=== PATIENT | female | born 1965 | race Caucasian/White ===

== ENCOUNTER → 2021-01-17 14:09 | Outpatient (CLI) | payer OTHER, SELFPAY ==
[2021-01-17 15:41] LABS: COVID19 -Nasal RAPID Negative (Negative)
== END ==
PROVIDERS: Visit Provider Physician Assistant
DX: Z20.822 Contact with and (suspected) exposure to COVID-19 (principal)
CPT/HCPCS: 87635

== ENCOUNTER 2021-01-19 11:23 | Day surgery (SDC) | payer OTHER, SELFPAY ==
[2021-01-19] VITALS (14 sets, daily range): BP systolic 102–142; BP diastolic 69–89; PULSE 48–74; RESP 8–18; TEMP 35.6–36.6; O2SAT 93–99; BMI 32.8
--- NOTE | 2021-01-19 | DI.RAD.S_ITS ---
PROCEDURE: XR KNEE RT 1TO2V INDICATIONS: POST OP TOTAL RIGHT KNEE TECHNIQUE: To view(s) of the knee acquired. COMPARISON: None. FINDINGS: Bones: Patient is status post knee joint arthroplasty. Hardware components are in expected positions. Visualized bony structures are intact. Soft tissues: Overlying postoperative changes are noted. IMPRESSION: Normal alignment after right total knee arthroplasty. Dictated by: Javier Meadows M.D. on 01/20/2021 at 8:12 Approved by: Javier Meadows M.D. on 01/20/2021 at 8:12
[2021-01-19] MEDS: ACETAMINOPHEN 325 MG TABLET 975 MG PO (12:11)
[2021-01-19] MEDS: PREGABALIN 75 MG CAPSULE PO (12:11)
[2021-01-19] MEDS: CELECOXIB 200 MG CAPSULE PO (12:11)
[2021-01-19] MEDS: LACTATED RINGERS 1,000 ML 42 ML IV ×2 (12:12→16:34)
--- NOTE | 2021-01-19 13:56 | PM.PREOP ---
Pre-operative Note COVID-19 COVID-19 status: Negative Result date/Date tested (Pos, Neg/Pending): 01/17/21 Interval Note History & Physical reviewed/Exam performed by Physician: Yes Changes to H&P: No H&P completed within 30 days and has changed as indicated here:: Plan for R TKA
[2021-01-19] MEDS: CEFAZOLIN 2 GM/100 ML FROZ.PIGGY IV ×2 (14:41→22:56)
[2021-01-19] MEDS: TRANEXAMIC ACID 1,000 MG VIAL 1000 MG INJ ×2 (15:00→16:38)
--- NOTE | 2021-01-19 15:16 | SUR.OPER ---
Supine on padded OR bed. Pillow under head, arms secured on padded armboards <90 degree abduction. Safety belt across torso. Non-operative leg secured with tape over blanket over lower leg. Operative leg on padded bar. Foam padded brace at thigh of operative leg.
[2021-01-19] MEDS: ROPIVACAINE 0.5% PF 5 MG/ML 20ML VIAL 60 ML INJ (15:21)
[2021-01-19] MEDS: MORPHINE 4 MG/ML INJ INJ (15:22)
[2021-01-19] MEDS: KETOROLAC 30 MG/ML VIAL IV (15:22)
[2021-01-19] MEDS: SODIUM CHLORIDE IRRIG SOLUTION 250 ML, POVIDONE-IODINE SPONGE STICKS 1 APPLIC IRR (15:24)
--- NOTE | 2021-01-19 16:27 | P.OP_ITS ---
Operative Date/Time/Diagnoses Date of procedure: 01/19/21 Time of procedure: 16:27 Pre-op diagnosis: right knee OA Post-op diagnosis: same Procedure & Clinicians Procedure: Right TKA Same procedure as scheduled: Yes Indications: Right knee osteoarthritis resistant to further conservative care Surgeon: Cisco Groves Marketing Project Manager: Javier Leonard Anesthesia Type: General and Spinal Operative Notes Findings: [id number] articulation of the lateral compartment. Overall valgus alignment. Closure Type: primary Specimen(s): none sent Prosthetic devices, grafts, tissues, transplants, or devices: Camacho [employer] Nephew size 7 right Journey 2 CR femoral component Size 6 right Journey tibial base plate Size 5-6 right 9 mm thick Journey 2 polyethylene deep dish 32 mm oval patellar button Estimated Blood Loss (mL): 200 Tourniquet time (min): 52 Procedure in detail: Patient was met in the preoperative holding area where the site and side of surgery were marked by . informed consent was signed in clinic but was also reviewed the preoperative holding area. All last minute questions were answered. Patient was then brought back in the operating room where she received a spinal anesthetic. She was then placed supine on the operating room table. A nonsterile tourniquet was then placed on her right thigh and the right lower extremity was then prepped and draped in normal sterile fashion. A surgical time-out was performed verifying the site and side of surgery as well as the name of the patient. An Esmarch was used to exsanguinate blood from the right lower extremity the tourniquet was inflated 250 mm of mercury. A longitudinal incision over the center of the knee was then made with a 10. Blade. Medial lateral flaps were then elevated. A medial parapatellar arthrotomy was then performed removed Hoffa's fat pad was then performed followed by a medial peel. The lateral meniscus was then removed. Lindrith's line was then marked the entry for the femoral drill was marked approximately 0.5 cm proximal to the PCL insertion and the ACL was removed and the tibial entrance marked the ACL footprint was also marked. The drill was then entered the femoral canal and the tibial canal respectively the intramedullary guide for the femur was then placed and the femur was cut in the neutral slot after inspection of the. This would not be enough cuts were 2 mm were taken. The intramedullary mak was then placed inside the tibia. The tibial cutting guide was then placed and provisionally pinned into place a drop mak was then used to verify varus valgus alignment. A 3rd pin was then placed to hold this in alignment. Tibial cut was then made. At this point the cutting blocks removed the knee was brought into full extension a 9 mm extension block fit on the medial side however did not fit in the lateral side and the lateral collateral ligament was tight. The leg was placed in a figure 4 position and the lateral collateral ligament was was pie crusted with a 15 blade. I then trialed the extension block again still tight on the lateral side and progressively performed more more high crusting until the extension block fit in the lateral and medial sides. Once this was complete then placed the gap automotive service professional on and the femur and marked with drill holes. This was compared to Whitesides line. This showed external rotation. And the femur sized to a size 7. The 5 in 1 size 7 femoral cutting block was then placed on the femur pinned in place. The 5 in 1 cuts were then performed sequentially. A size 7 trial was then placed on the femur the notch cut was then performed and a size 6 tibial base plate with a 9 mm thick CR was trialed the knee had full extension and excellent flexion range of motion. Knee stable to varus and valgus stress at full extension as well as mid flexion and flexion range of motion. The PCL was noted to be tight at this point and not allowing rollback. A 15 blade was then used to pie crust the PCL until rollback was achieved. The patella was then freehand cut and sized to a 32 mm patella this was then drilled for and a trial was placed. The patella tracked through flexion-extension range of motion. At this point the trials were removed local anesthetic was infiltrated into the periarticular soft tissues well as the back of the knee. The tibial tray was then placed on the tibia and pinned in place and drilled and punched. Full puls e lavage was then used to clean the cut surfaces of the knee the surfaces were then dried. Cement was mixed and packed onto the cut surface of the tibia and finger packed into the keel hole. Cement was placed on the undersurface of the tibial base plate and malleted into place excess cement was removed. Cement was then finger packed on the cut surface of the femur with exception of the posterior condylar cut and cement was placed on the feet of the femoral component this was then malleted into place and excess cement was removed. A 9 mm thick polyethylene trial was then placed the knee was brought into full extension and the ankle held in internal rotation. Cement was then finger packed onto the cut surface of the patella and the patellar button was then clamped into place and excess cement was removed. Betadine solution was then placed in the wound and the cement was allowed to fully cure before manipulation of the knee. Tourniquet was let down at 52 minutes of time. Hemostasis was achieved using electrocautery. After full cement cure with the for any bony fragments are excess cement none was seen. The knee was then thoroughly irrigated 1 more time with normal saline the trial was then removed and a size 5-6 right deep dish 9 mm thick polyethylene was then selected and placed make sure the medial and lateral tabs were engaged. The medial parapatellar arthrotomy was then closed using number 0 Vicryl interrupted fashion followed by running Quill suture followed by 2 Vicryl in subcutaneous layer followed by 3-0 Stratafix in subcuticular layer followed by Dermabond and Aquacel dressing. Complications: none Post-operative Condition: stable Disposition: PACU Plan for aftercare: 24 hours post-op, WBAT RLE, ASA 81mg BID for 6 weeks for DVT prophylaxis
[2021-01-19] MEDS: OXYCODONE IR 5 MG TABLET PO (17:17)
[2021-01-19] MEDS: ONDANSETRON 4 MG/2 ML INJ IV (17:18)
[2021-01-19] MEDS: LACTATED RINGERS 1,000 ML 100 ML IV (18:13)
[2021-01-19] MEDS: OXYCODONE IR 10 MG TABLET PO ×2 (19:11→22:56)
[2021-01-19] MEDS: DOCUSATE 100 MG CAPSULE PO (21:27)
[2021-01-19] MEDS: ASPIRIN EC 81 MG TABLET PO (21:27)
[2021-01-19] MEDS: ACETAMINOPHEN 325 MG TABLET 650 MG PO (21:27)
[2021-01-20 03:29] VITALS: BP 148/75; PULSE 54; RESP 18; TEMP 36.5; O2SAT 94
[2021-01-20] MEDS: OXYCODONE IR 10 MG TABLET PO ×3 (03:32→13:35)
[2021-01-20 04:58] LABS: Hematocrit 31.3 % (36-46); Hemoglobin 10.6 g/dL (12.0-16.0)
[2021-01-20] MEDS: CEFAZOLIN 2 GM/100 ML FROZ.PIGGY IV (06:34)
--- NOTE | 2021-01-20 08:13 | P.DS_ITS ---
History of Present Illness History of Present Illness Date Patient Seen: 01/20/21 Time Patient Seen: 08:13 Chief complaint: SDC Discharge Providers Provider Discharge Date: 01/20/21 Consults: 01/19/21 07:45 Consult to Anesthesiology Routine Comment: Consulting Provider: Anesthesiologist Reason for consultation: Regional block for post operative pain control 01/19/21 17:47 Consult to Discharge Planning Routine Comment: Consult to Physical Therapy Evaluate & Treat Comment: Physician Instructions: postop TKA protocol Consult to Respiratory Therapy Evaluate & Treat Comment: Physician Instructions: Evaluate and treat Discharge provider: Javier Leonard PA-C Summary Hospital Course Discharge Diagnosis: Right knee osteoarthritis Status post total right knee arthroplasty Hospital Course: This is a 55-year-old female with the above-listed diagnosis that was consented for the above listed procedure as indicated presenting to the OR having undergone said procedure without difficulty or complication was admitted for rehabilitation and convalesced appropriately without significant issue. They were stable for discharge home safely today. The patient verbalized understanding postoperative care instructions and agree with plan for follow-up. Status at Discharge Cognitive/behavioral status at discharge: oriented Functional status at discharge: uses cane/walker Overall status at discharge: patient is progressing back to baseline Time Spent with Patient Time spent: Less than 30 minutes Exam Vital Signs (past 8 hours): - 01/20/21 03:29 Temperature 97.7 F Pulse Rate 54 L Respiratory Rate 18 Blood Pressure 148/75 H Pulse Oximetry 94 Oxygen Delivery Method Room Air Oxygen Flow Rate 0 Narrative Exam Narrative: Observed resting comfortably in no apparent distress and alert and oriented x3. The patient's heart rate was regular as well as a normal inspiratory effort. Her dressing was clean, dry and intact. Distal affected extremities were neurovascularly intact. Bilateral lower extremities were negative for signs or symptoms of DVT. Objective Labs Result Diagrams: 01/20/21 04:30 Labs: Laboratory Results - last 24 hr 01/20/21 04:30 Hgb 10.6 L Hct 31.3 L PFSH Medical History (Updated 01/18/21 @ 10:19 by Hiwot Cadet RN) Anemia Anxiety Arthralgia Back pain Chest pain Degenerative joint disease of knee Dizziness Eczema Fatigue First degree AV block HTN (hypertension) Migraine headache Moderate major depression Obesity Primary osteoarthritis of right knee PSVT (paroxysmal supraventricular tachycardia) (~2006) Sciatica Shortness of breath Tibial fracture Vitamin D deficiency Surgical History (Updated 01/18/21 @ 10:09 by Hiwot Cadet RN) H/O arthroscopy of knee (~1996) H/O blepharoplasty (~2016) H/O hernia repair History of abdominoplasty History of eye surgery Social History household members: family Smoking Status: Current some day smoker alcohol intake: current Discharge Assessment & Plan Assessment and Plan Assessment: Right knee osteoarthritis Status post total right knee arthroplasty Plan of Treatment: Discharged home today in stable condition Postoperative total knee care protocol apply. Weight-bearing as tolerated on right lower extremity with fall precautions. DVT prophylaxis 81 mg of aspirin taken twice daily for the next 6 weeks. Follow-up in clinic in 2 weeks for re-evaluation or sooner as needed. Discharge Plan Discharge Plan Patient Disposition: Home Discharge orders & Medications Discharge Orders: Discharge (Order); Ordered 01/20/21 Ordered By: Javier Leonard Prescriptions: New acetaminophen 325 mg Tablet 650 mg PO TID PRN (Reason: Pain (Scale Score 4-6)) Qty: 60 RF: 0 aspirin 81 mg Tablet,Delayed Release (Dr/Ec) 81 mg PO BID Qty: 90 RF: 0 docusate sodium [DOK] 100 mg Capsule 100 mg PO BID PRN (Reason: Constipation) Qty: 30 RF: 0 oxycodone 10 mg Tablet 5 - 10 mg PO Q4-5H PRN (Reason: Pain, Severe (7-10)) Qty: 60 RF: 0 ibuprofen 800 mg tablet 800 mg PO TID PRN (Reason: pain) Qty: 60 RF: 0 Continued lisinopril-hydrochlorothiazide 20-12.5 mg Tablet 1 tab PO DAILY RF: 0 metoprolol tartrate 25 mg Tablet 25 mg PO DAILY PRN (Reason: Palpitations or public speaking) RF: 0 multivitamin Tablet 1 tab PO DAILY RF: 0 triamcinolone acetonide 0.5 % Cream 1 applic TOPICAL BID PRN (Reason: Rash) RF: 0 ergocalciferol (vitamin D2) 50,000 unit Tablet 50,000 unit PO WEEKLY RF: 0 Follow up/Referrals: Cisco Groves MD [Physician] - (F/U in 2 weeks) Diet/Activity/Treatments Diet: Diet as Tolerated Activity: Weight Bear As Tolerated on Right Lower Extremity. Cold/Heat Therapy: Ice 20 min /hr as tolerated. Other treatments: Leave aquacel dressing in place until appointment. You may shower. Skin/Wound/Dressing Care Report to your healthcare provider any signs of infection, such as:: chills, fever, night sweats, increased pain, unusual drainage and unusual redness Dressing: Keep Clean Dry Intact Visit Report/Discharge Packet Instructions: DI for Knee Replacement, DI for Constipation, How to Prevent Fall s Stand Alone Forms: Surgery Discharge Discharge Data Attending Provider: Cisco Groves
[2021-01-20] MEDS: ACETAMINOPHEN 325 MG TABLET 650 MG PO ×2 (08:54→13:34)
[2021-01-20] MEDS: lisinopriL 20 MG TABLET PO (08:55)
[2021-01-20] MEDS: hydroCHLOROthiazide 25 MG TABLET 12.5 MG PO (08:55)
[2021-01-20] MEDS: ASPIRIN EC 81 MG TABLET PO (08:55)
[2021-01-20] MEDS: DOCUSATE 100 MG CAPSULE PO (08:55)
--- NOTE | 2021-01-20 10:20 | PT.IIE ---
Current Diagnoses Unilateral primary osteoarthritis, right knee (01/19/21) Surgery Performed Operation Date: 01/19/21 13:15 Actual Procedures p Total Knee Arthroplasty(Right) - Cisco Groves MD Surgical History (Last Updated 01/18/21 @ 10:09 by Hiwot Cadet RN) H/O arthroscopy of knee (~1996) H/O blepharoplasty (~2016) H/O hernia repair History of abdominoplasty History of eye surgery Medical History (Last Updated 01/18/21 @ 10:19 by Hiwot Cadet RN) Anemia Anxiety Arthralgia Back pain Chest pain Degenerative joint disease of knee Dizziness Eczema Fatigue First degree AV block HTN (hypertension) Migraine headache Moderate major depression Obesity Primary osteoarthritis of right knee PSVT (paroxysmal supraventricular tachycardia) (~2006) Sciatica Shortness of breath Tibial fracture Vitamin D deficiency Physical Therapy Inpatient Evaluation/Re-Eval M1 PT/OT-IP Prior Functional Status Start: 01/20/21 08:29 Freq: NEEDED Status: Active Protocol: Document 01/20/21 10:20 AW (Rec: 01/20/21 09:12 AW [id number]) Medical Review Prior Functional Status Medical History Reviewed Yes Communication WNL. Pt is an effective verbal communicator. Mobility and Gait Pt admits to slow but independent movement at baseline. Able to walk up to two miles without AD. Activities of Daily Living and IADL's Independent. Social History Household Members family Living Arrangements House Number of Floors (Floors) One Floor Number of Stairs To Enter/Railing? 2 deep VLADIMIR without railing. Pt can contact a wall on the left side after the first step . States she is able to use walker for stairs. 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 Her 26 yo son lives with her and will be available and able to assist as needed. Pt's brother and [id number] will also be assisting. Pt has a standard walker. States she will be able to borrow a FWW from her [place]. M2 PT-IP Current Condition Start: 01/20/21 08:29 Freq: NEEDED Status: Active Protocol: Document 01/20/21 10:20 AW (Rec: 01/20/21 09:20 AW [id number]) Physical Therapy Current Condition Current Condition Evaluation Date 01/20/21 Treatment Diagnosis R TKA; difficulty in walking Onset Date 01/19/21 Weight Bearing Status Weight Bearing Status Weight Bear as Tolerated M3 PT-IP Subjective Start: 01/20/21 08:29 Freq: NEEDED Status: Active Protocol: Document 01/20/21 10:20 AW (Rec: 01/20/21 09:20 AW [id number]) Subjective Physical Therapy Visit Type Type Initial Evaluation Visit Start Time 08:54 Visit Stop Time 10:20 Total Visit Minutes 34 Notes 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 visits 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 Number of SLEEP TECHNOLOGIST Visits 0 Physical Therapy Visit Comments Patient Comments Pt is willing to participate with PT Patient Goals Return home with family support Therapy Pain Assessment Pain When Pain Assessed At Rest Pain Present Pain Present Pain Reported Location right knee Intensity 4 Scale Used Numeric (0 - 10) Pain Management Techniques Apply Cold,Timing of Activity with Medications M4 PT-IP Mobility and Gait Start: 01/20/21 08:29 Freq: NEEDED Status: Active Protocol: Document 01/20/21 10:20 AW (Rec: 01/20/21 11:38 AW [id number]) PT-Bed Mobility Assessment Supine to Sit Supine to Sit Standby Assistance,Head of Bed Elevated Scooting Scooting to Edge of Bed Standby Assistance PT-Transfer Assessment Sit to and From Stand Sit to and from Stand Standby Assistance,Use of Upper Extremities Equipment Transfer Assistive Device Gait Belt,Front Wheeled Walker Orthotic/Prosthetic Devices or Brace: No Transfers Transfer Destination Chair Transfer Technique Stand Step Pivot Transfer Ability Level of Assist Standby Assistance Comments Mobility Comments Pt was sitting up in the bed as PT arrived. BP was 122/67 HR 68. Pt completed supine to sit SBA and sat EOB without complaint of increased pain. She stood from the bed SBA and ambulated in the halls with FWW SBA. She walked 110 feet to the therapy stairs, completed stair training, and returned the 110 feet with FWW SBA. On return to the room, she transferred to the bedside chair and practiced sit to stand from lower surface SBA. Pt was left with call light and all needs in reach. Gait Assessment Gait Gait Assistance Required: Standby Assistance Distance (Feet) 220 Able to Maintain Weight Bearing Status Yes During Gait Assistive Devices Assistive Device Gait Belt,Front Wheeled Walker Orthotic/Prosthetic Devices or Brace: Yes Gait Deviations General Gait Pattern Antalgic,Decreased Stride Length,Decreased Feet Clearance,Flexed Trunk,Step-to Gait Factors Limiting Gait Function Factors Limiting Gait Function Decreased Activity Tolerance, Decreased Strength,Limited Range of Motion,Pain Comments Gait Comments Pt walked with significant step to pattern at first but opened up her stride length with longer distance. She was able to accept weight on RLE with minimal weighbearing through the walker. Stair Climbing Assessment Evaluation Level of Assist On Stairs Contact Guard Assistance Devices Stair Climbing Assistive Devices Front Wheel Walker Technique/Endurance Stair Climbing Direction Ascend and Descend Stair Climbing Technique Step to Step Number of Steps Climbed 1 Query Text: Stair Climbing Set # Repetitions (reps) 2 Comments Stair Climbing Comments Educated pt on sequencing. Pt was able to complete two reps on platform step without further cues CGA. PT-Balance Assessment Sitting Balance and Reactions Static Sitting Balance Ability Normal Dynamic Sitting Balance Ability Normal Standing Balance and Reactions Static Standing Balance Ability Good Dynamic Standing Balance Ability Good Device Used FWW M5 PT-IP Objective Assessments Start: 01/20/21 08:29 Freq: NEEDED Status: Active Protocol: Document 01/20/21 10:20 AW (Rec: 01/20/21 11:38 AW [id number]) Orientation Orientation/Cognition Level of Alertness Alert Orientation Name,Day of Week,Place, Situation Language Function Ability No Deficits Noted Safety Awareness Understands Safety Issues Memory Description No Deficits Noted Gross Range of Motion Upper Extremity ROM Assessment Within Functional Limits Lower Extremity ROM Assessment Right Impaired Impairments knee AROM 5-90 Strength Upper Extremity Strength Assessment Within Functional Limits Lower Extremity Strength Assessment Right Impaired Hip 4-/5 Knee 3-/5 Comments Strength Comments LLE grossly 4+/5 Sensation Assessment Sensation Gross Sensation WNL Muscle Tone Muscle Tone WNL Yes M6 PT-IP Treatment Start: 01/20/21 08:29 Freq: NEEDED Status: Active Protocol: Document 01/20/21 10:20 AW (Rec: 01/20/21 11:38 AW [id number]) Physical Therapy Treatment Exercises Exercises Ankle Pumps,Quad Sets,Heel Slides,Passive Knee Extension Hang,Seated Knee Flexion/ Extension Education Education Provided Precautions,Weight Bearing Status,Post-Op Packet,Safety Other Treatments Other Treatment Performed Educated pt on role of PT, plan of care, weightbearing status, importance of ROM in early phase of rehab, safe use of FWW. M7 PT-IP Assessment and Plan Start: 01/20/21 08:29 Freq: NEEDED Status: Active Protocol: Document 01/20/21 10:20 AW (Rec: 01/20/21 11:38 AW [id number]) PT Summary Assessment and Plan Potential Rehabilitation Potential Excellent Status of Condition at Evaluation Stable Summary Impairments Pain,ROM,Strength,Balance,Bed Mobility,Transfers,Gait Assessment Summary Linda is a 55 yo woman seen for PT evaluation on POD1 following R TKA. She is independent in all regards at baseline. She required SBA with all mobility except CGA assist for stairs during evaluation. She has family to assist at home and outpatient therapy already scheduled to begin next week. Pt is safe for discharge with assist. Frequency of Treatment Frequency Of Treatment Discharge Recommendations To Nursing Amount of Assist Needed Standby Assistance Discharge Recommendations PT Discharge Recommendations Home with Assistance, Outpatient PT Transportation Needs at Discharge Private Vehicle
[2021-01-20 11:03] VITALS: BP 122/67; PULSE 68; RESP 23; TEMP 36.9; O2SAT 95
--- NOTE | 2021-01-20 11:50 | CM.DANOTE ---
DCP: Case received, EMR reviewed and met with patient. Introduced self and role. Was able to obtain information from patient regarding her baseline activity level prior to surgery, as well as her current living situation. DCP assessment completed with information currently available. Patient is a 55 year old female who admitted yesterday morning to the care of the hospitalist team. PCP: Dr. Charles. Payer: confirmed: Healthcare Management. Patient came to the hospital via private vehicle for a surgical procedure. She had right knee surgery. Patient has had history of osteoarthritis. Met with patient in her room. She resides in [place], but works in [place] at [employer]. She is single, and resides with her 26 year old son. She also has a brother who lives near by. Stated, she has support at home to assist her. She is independent at her baseline, and uses no DME supplies. P: Patient has discharge orders to go home. She will work with therapy before discharge. Tatianna Chowdhury RN/Hardware Trainer
--- NOTE | 2021-01-20 14:07 | PC.NURSE ---
Discharge: Feels ready for d/c home. Seen by PT and safe to go home. PT gave their d/c instructions. Seen by PA and received discharge instructions. Tolerates diet w/out problems. Vds w/out diff. Reports po pain medication is effective for pain. Follows her total knee precautions. Given rx's. D/c packet given and reviewed. Questions answered. Pt is d/c home with brother and staying with him for now. D/c home with brother w/out incident.
== END 2021-01-20 13:45 | disposition home or self-care (01) ==
LOC: OR 11:29 → AC 17:52
PROVIDERS: Referring Provider Orthopaedic Surgery Adult Reconstructive Orthopaedic Surgery; Visit Provider Orthopaedic Surgery Adult Reconstructive Orthopaedic Surgery
PROC: 0SRC0JZ Replacement of Right Knee Joint with Synthetic Substitute, Open Approach (ICD-10-PCS; CPT 27447; principal; 2021-01-19 13:15)
DX: M17.11 Unilateral primary osteoarthritis, right knee (principal); I10 Essential (primary) hypertension; F17.210 Nicotine dependence, cigarettes, uncomplicated; E66.9 Obesity, unspecified; D64.9 Anemia, unspecified
CPT/HCPCS: 27447; 36415; 73560; 85014; 85018; 97110; 97161; C1776; J0690; J1100; J1885; J2250; J2270; J2405; J2704; J3010